=== PATIENT | male | born 1965 | race Caucasian/White ===

== ENCOUNTER → 2019-10-28 09:12 | Outpatient (CLI) | payer OTHER, MEDICARE, SELFPAY ==
[2019-10-28 10:55] LABS: Coronavirus 19 IgG Antibody Negative (Negative); Coronavirus 19 IgM Antibody Negative (Negative)
== END ==
PROVIDERS: Visit Provider Surgery
DX: Z01.818 Encounter for other preprocedural examination (principal)
CPT/HCPCS: 36415; 86328

== ENCOUNTER 2019-10-29 07:17 | Day surgery (SDC) | payer OTHER, MEDICARE, SELFPAY ==
--- NOTE | 2019-10-27 10:25 | SUR.PREOP ---
Addendum entered by OPAL Mahan 10/27/19 10:25: 10/27/2019 @ 1025---SPOKE TO PATIENT. 0900 ON 10/28/2019. Original Note: []--PHONE CALL MADE TO PATIENT. PATIENT UNDERSTANDS THAT LAB WORK AND COVID TESTING NEEDS TO BE COMPLETED @ [] on []. PATIENT UNDERSTANDS IF LAB WORK AND COVID-19 TESTS ARE NOT COMPLETED BY 12PM ON THAT DATE, THE SURGERY SCHEDULED WILL BE CANCELLED AND RESCHEDULED FOR ANOTHER TIME.
[2019-10-28 10:10] VITALS: BMI 39.4
[2019-10-29 07:36] VITALS: BP 119/73; PULSE 58; RESP 18; TEMP 36.8; O2SAT 96
--- NOTE | 2019-10-29 08:15 | P.PN_ITS ---
[facility] Anesthesia Checklist - Patient Identification Patient Identification: Arm Band, Verbal (Name & ) - Structural Data Admitted From: Home Planned Operative Procedure/s: colon Consent for Planned Operative Procedure(s) Verified: Yes Verified Documents: History and Physical - NPO Status Verified Time NPO: 00:00 - Chart Verification Results Verified: CBC, BMP - Additional verifications Patient : No Anesthesia Reactions: No Hx Blood Transfusions: No Blood Transfusion Reaction: No Cephalosporin Allergy: No Previous Colonoscopy: No - Cardiovascular Assessment Heart Sounds: S1 & S2 Pulse Strength: Baseline Pulse Rhythm: Regular Peripheral Edema: No - Airway Assessment C-Spine Mobility Assessed: Yes TMJ Mobility Assessed: Yes Dentition: Good Dentition - Neurological Assessment Level of Consciousness: Awake, Alert, Appropriate Hx Seizures: No Numbness or tingling in extremities: No - Anesthesia Plan Anesthesia Risk discussed: Yes ASA Class: III Anesthesia Type: MAC [facility] History I have reviewed the patient's past medical history: Yes Medical History: Reports:: Hiatal Hernia Denies:: Cancer, Diabetes Mellitus Type 1, Diabetes Mellitus Type 2, Internal Pacemaker, MRSA, Seizures *Have you ever received a pneumonia vaccine?: No *Have you received a flu vaccine this season?: Yes Other Medical History: Reports: Arthritis Anesthesia experience/problems:: none Laterality Cases: Bilateral: Tonsillectomy, Total Knee Replacement Other Surgeries: Yes: Bariatric Surgery, Colonoscopy, Splenectomy. No: Pacemaker Amputation: No Fractures: Yes - *Social History Educational Level: Completed High School Smoking Status: Never smoker Alcohol Intake: never Alcohol Intake Frequency:: holidays/special occasions only Substance Use Type: denies use *Occupational Status:: unemployed Housing: house Household Members: spouse *Travel in the last 8 weeks: None Family Hx:: Diabetes
[2019-10-29 08:27] VITALS: O2SAT 96
--- NOTE | 2019-10-29 09:15 | P.PCN_ITS ---
- Procedure: Date: 10/29/19 Procedure Performed:: Colonoscopy with polypectomy and biopsy Indications:: Screening Performing Provider:: Sridhar Jo MD Referring Provider:: . Sedation:: Monitored anesthesia care Procedure:: After informed consent was obtained the patient was taken to the endoscopy suite. Sedation ensued after the patient was transferred to the left lateral decubitus position. Pulse, blood pressure, and oxygen saturation were monitored throughout the procedure. Digital rectal exam revealed no significant abnormality. The colonoscope was placed in position. The entire colon was evaluated. The colonoscope was carefully removed and the patient was transferred to recovery in stable condition. Please see findings and specimens below for detail. Findings:: Bowel preparation relatively fair Fairly significant spasticity and lack of relaxation Partially-pedunculated polyp at 55 cm Complex ulcerated mass around 30 cm Specimens:: Partially-pedunculated polyp at 55 cm (snare) Multiple biopsies of complex ulcerated mass around 30 cm Recommendations:: The patient will likely require ongoing oncologic evaluation to include preoperative CEA/CT scan. Secondary to his significant comorbid medical conditions, he will be referred to a tertiary care center (Dr. Oswaldo Trejo at the [facility]) for further evaluation and management. Complications:: No immediate Estimated blood obtained (mL): 1
[2019-10-29 09:18] VITALS: BP 95/62; PULSE 53; RESP 18; TEMP 36.2; O2SAT 91
[2019-10-29 09:23] VITALS: BP 107/70; PULSE 53; RESP 18; TEMP 36.2; O2SAT 97
[2019-10-29 09:33] VITALS: BP 115/72; PULSE 52; RESP 18; TEMP 36.2; O2SAT 96
[2019-10-29 09:45] VITALS: BP 111/81; PULSE 53; RESP 18; TEMP 36.2; O2SAT 94
== END 2019-10-29 09:45 | disposition home or self-care (01) ==
LOC: OUTP 07:21
PROVIDERS: PCP Family Medicine; Visit Provider Surgery
PROC: 0DJD8ZZ Inspection of Lower Intestinal Tract, Via Natural or Artificial Opening Endoscopic (ICD-10-PCS; CPT 45385; principal; 2019-10-29 08:30)
DX: Z12.11 Encounter for screening for malignant neoplasm of colon (principal); K63.5 Polyp of colon; K63.3 Ulcer of intestine; Z79.899 Other long term (current) drug therapy; Z88.8 Allergy status to other drugs, medicaments and biological substances; Z79.82 Long term (current) use of aspirin; M19.90 Unspecified osteoarthritis, unspecified site; Z90.89 Acquired absence of other organs; Z96.659 Presence of unspecified artificial knee joint; Z90.49 Acquired absence of other specified parts of digestive tract; Z87.891 Personal history of nicotine dependence
CPT/HCPCS: 45385; 45380